=== PATIENT | male | born 1950 | race Caucasian/White ===

== ENCOUNTER → 2017-07-24 | Outpatient (CLI) | payer BC, MEDICARE ==
[~2017-07-24] MED LIST: ATR80PT PO; AZIT-18 PO; LEVO-317 PO; LEVO200T50 PO; METO25TA23 PO; WARF2TAB73 PO; WARF4TAB46 PO
[2017-07-24 10:42] LABS: INR 2.69
== END ==
LOC: LAB 09:40
PROVIDERS: ATTEND Internal Medicine Cardiovascular Disease
DX: Z51.81 Encounter for therapeutic drug level monitoring (principal); Z79.01 Long term (current) use of anticoagulants; I06.0 Rheumatic aortic stenosis; Z95.2 Presence of prosthetic heart valve
CPT/HCPCS: 36415; 85610

== ENCOUNTER → 2017-08-22 | Outpatient (CLI) | payer BC, MEDICARE ==
[2017-08-22 12:59] LABS: INR 2.87
== END ==
LOC: LAB 12:17
PROVIDERS: ATTEND Internal Medicine Cardiovascular Disease
DX: Z51.81 Encounter for therapeutic drug level monitoring (principal); Z79.01 Long term (current) use of anticoagulants; Z95.2 Presence of prosthetic heart valve; I06.0 Rheumatic aortic stenosis
CPT/HCPCS: 36415; 85610

== ENCOUNTER → 2017-10-10 | Outpatient (CLI) | payer BC, MEDICARE ==
[2017-10-10 13:48] LABS: INR 9.16
== END ==
LOC: LAB 12:44
PROVIDERS: ATTEND Internal Medicine Cardiovascular Disease
DX: Z51.81 Encounter for therapeutic drug level monitoring (principal); Z79.01 Long term (current) use of anticoagulants; Z95.2 Presence of prosthetic heart valve
CPT/HCPCS: 36415; 85610

== ENCOUNTER → 2017-10-11 | Outpatient (CLI) | payer BC, MEDICARE ==
[2017-10-11 14:29] LABS: INR 4.32
== END ==
LOC: LAB 14:08
PROVIDERS: ATTEND Internal Medicine Cardiovascular Disease
DX: Z51.81 Encounter for therapeutic drug level monitoring (principal); Z79.01 Long term (current) use of anticoagulants; Z95.2 Presence of prosthetic heart valve; I06.0 Rheumatic aortic stenosis
CPT/HCPCS: 36415; 85610

== ENCOUNTER → 2017-10-15 | Outpatient (CLI) | payer BC, MEDICARE ==
[2017-10-15 12:35] LABS: INR 4.03
== END ==
LOC: LAB 12:08
PROVIDERS: ATTEND Internal Medicine Cardiovascular Disease
DX: Z51.81 Encounter for therapeutic drug level monitoring (principal); Z79.01 Long term (current) use of anticoagulants; Z95.2 Presence of prosthetic heart valve; I06.0 Rheumatic aortic stenosis
CPT/HCPCS: 36415; 85610

== ENCOUNTER → 2017-10-22 | Outpatient (CLI) | payer BC, MEDICARE ==
[2017-10-22 14:03] LABS: INR 3.46
== END ==
LOC: LAB 13:40
PROVIDERS: ATTEND Internal Medicine Cardiovascular Disease
DX: Z51.81 Encounter for therapeutic drug level monitoring (principal); Z79.01 Long term (current) use of anticoagulants; Z95.2 Presence of prosthetic heart valve; I06.0 Rheumatic aortic stenosis
CPT/HCPCS: 36415; 85610

== ENCOUNTER → 2017-11-06 | Outpatient (CLI) | payer BC, MEDICARE ==
[2017-11-06 11:37] LABS: INR 2.85
== END ==
LOC: LAB 11:16
PROVIDERS: ATTEND Internal Medicine Cardiovascular Disease
DX: Z51.81 Encounter for therapeutic drug level monitoring (principal); Z79.01 Long term (current) use of anticoagulants; Z95.2 Presence of prosthetic heart valve; I06.0 Rheumatic aortic stenosis
CPT/HCPCS: 36415; 85610

== ENCOUNTER → 2017-12-11 | Outpatient (CLI) | payer BC, MEDICARE ==
[2017-12-11 11:51] LABS: INR 1.96
== END ==
LOC: LAB 10:59
PROVIDERS: ATTEND Internal Medicine Cardiovascular Disease
DX: Z51.81 Encounter for therapeutic drug level monitoring (principal); Z79.01 Long term (current) use of anticoagulants; Z95.2 Presence of prosthetic heart valve; I06.0 Rheumatic aortic stenosis
CPT/HCPCS: 36415; 85610

== ENCOUNTER → 2017-12-27 | Outpatient (CLI) | payer BC, MEDICARE ==
[2017-12-27 11:43] LABS: INR 1.75
== END ==
LOC: LAB 11:24
PROVIDERS: ATTEND Internal Medicine Cardiovascular Disease
DX: Z51.81 Encounter for therapeutic drug level monitoring (principal); Z79.01 Long term (current) use of anticoagulants; Z95.2 Presence of prosthetic heart valve; I06.0 Rheumatic aortic stenosis
CPT/HCPCS: 36415; 85610

== ENCOUNTER → 2018-01-16 | Outpatient (CLI) | payer BC, MEDICARE ==
[2018-01-16 11:44] LABS: INR 1.43
== END ==
LOC: LAB 11:26
PROVIDERS: ATTEND Internal Medicine Cardiovascular Disease
DX: Z51.81 Encounter for therapeutic drug level monitoring (principal); Z79.01 Long term (current) use of anticoagulants; Z95.2 Presence of prosthetic heart valve; I06.0 Rheumatic aortic stenosis
CPT/HCPCS: 36415; 85610

== ENCOUNTER → 2018-01-21 | Outpatient (CLI) | payer BC, MEDICARE ==
[2018-01-21 12:13] LABS: INR 1.77
== END ==
LOC: LAB 11:53
PROVIDERS: ATTEND Internal Medicine Cardiovascular Disease
DX: Z51.81 Encounter for therapeutic drug level monitoring (principal); Z79.01 Long term (current) use of anticoagulants; I06.0 Rheumatic aortic stenosis; Z95.2 Presence of prosthetic heart valve
CPT/HCPCS: 36415; 85610

== ENCOUNTER → 2018-01-24 | Outpatient (CLI) | payer BC, MEDICARE ==
[2018-01-24 10:17] LABS: INR 2.87
== END ==
LOC: LAB 09:52
PROVIDERS: ATTEND Internal Medicine Cardiovascular Disease
DX: Z51.81 Encounter for therapeutic drug level monitoring (principal); Z79.01 Long term (current) use of anticoagulants; Z95.2 Presence of prosthetic heart valve; I06.0 Rheumatic aortic stenosis
CPT/HCPCS: 85610

== ENCOUNTER → 2018-01-24 | Outpatient (CLI) | payer BC, MEDICARE ==
[2018-01-24 10:09] LABS: PLATELET COUNT, AUTOMATED 186 K/uL (150-450)
== END ==
LOC: LAB 09:48
PROVIDERS: ATTEND Internal Medicine
DX: E78.5 Hyperlipidemia, unspecified (principal); I10 Essential (primary) hypertension; E03.9 Hypothyroidism, unspecified; Z95.2 Presence of prosthetic heart valve; Z95.4 Presence of other heart-valve replacement
CPT/HCPCS: 36415; 81001; 82040; 82247; 82310; 82374; 82435; 82465; 82565; 82947; 83718; 84075; 84132; 84153; 84155; 84295; 84439; 84443; 84450; 84460; 84478; 84520; 85025

== ENCOUNTER → 2018-01-30 | Outpatient (CLI) | payer BC, MEDICARE ==
[2018-01-30 13:05] LABS: INR 4.05
== END ==
LOC: LAB 12:24
PROVIDERS: ATTEND Internal Medicine Cardiovascular Disease
DX: Z51.81 Encounter for therapeutic drug level monitoring (principal); Z79.01 Long term (current) use of anticoagulants; Z95.2 Presence of prosthetic heart valve; I06.0 Rheumatic aortic stenosis
CPT/HCPCS: 36415; 85610

== ENCOUNTER → 2018-02-06 | Outpatient (CLI) | payer BC, MEDICARE ==
[2018-02-06 13:51] LABS: INR 3.74
== END ==
LOC: LAB 13:28
PROVIDERS: ATTEND Internal Medicine Cardiovascular Disease
DX: Z51.81 Encounter for therapeutic drug level monitoring (principal); Z79.01 Long term (current) use of anticoagulants; Z95.2 Presence of prosthetic heart valve; I06.0 Rheumatic aortic stenosis
CPT/HCPCS: 36415; 85610

== ENCOUNTER → 2018-02-25 | Outpatient (CLI) | payer BC, MEDICARE ==
[2018-02-25 09:39] LABS: INR 3.77
== END ==
LOC: LAB 09:19
PROVIDERS: ATTEND Internal Medicine Cardiovascular Disease
DX: Z51.81 Encounter for therapeutic drug level monitoring (principal); Z79.01 Long term (current) use of anticoagulants; Z95.2 Presence of prosthetic heart valve; I06.0 Rheumatic aortic stenosis
CPT/HCPCS: 36415; 85610

== ENCOUNTER → 2018-03-14 | Outpatient (CLI) | payer BC, MEDICARE ==
[2018-03-14 11:46] LABS: INR 3.66
== END ==
LOC: LAB 11:20
PROVIDERS: ATTEND Internal Medicine Cardiovascular Disease
DX: I06.0 Rheumatic aortic stenosis (principal); Z95.2 Presence of prosthetic heart valve; Z51.81 Encounter for therapeutic drug level monitoring; Z79.01 Long term (current) use of anticoagulants
CPT/HCPCS: 36415; 85610

== ENCOUNTER → 2018-04-01 | Outpatient (CLI) | payer BC, MEDICARE ==
[2018-04-01 10:48] LABS: INR 2.85
== END ==
LOC: LAB 10:16
PROVIDERS: ATTEND Internal Medicine Cardiovascular Disease
DX: Z51.81 Encounter for therapeutic drug level monitoring (principal); I06.0 Rheumatic aortic stenosis; Z95.2 Presence of prosthetic heart valve; Z79.01 Long term (current) use of anticoagulants
CPT/HCPCS: 36415; 85610

== ENCOUNTER → 2018-05-08 | Outpatient (CLI) | payer BC, MEDICARE ==
[~2018-05-08] MED LIST changes: +EZET10TA41 PO; +LEVO175T42 PO
[2018-05-08 13:30] LABS: INR 2.79
== END ==
LOC: LAB 13:10
PROVIDERS: ATTEND Internal Medicine Cardiovascular Disease
DX: Z51.81 Encounter for therapeutic drug level monitoring (principal); I06.0 Rheumatic aortic stenosis; Z95.2 Presence of prosthetic heart valve; Z79.01 Long term (current) use of anticoagulants
CPT/HCPCS: 36415; 85610

== ENCOUNTER → 2018-05-30 | Outpatient (CLI) | payer BC, MEDICARE ==
[2018-05-30 11:30] LABS: INR 2.53
== END ==
LOC: LAB 11:10
PROVIDERS: ATTEND Internal Medicine Cardiovascular Disease
DX: Z51.81 Encounter for therapeutic drug level monitoring (principal); Z79.01 Long term (current) use of anticoagulants; Z95.2 Presence of prosthetic heart valve; I06.0 Rheumatic aortic stenosis
CPT/HCPCS: 36415; 85610

== ENCOUNTER → 2018-06-20 | Outpatient (CLI) | payer BC, MEDICARE ==
[2018-06-20 10:55] LABS: INR 3.52
== END ==
LOC: LAB 10:34
PROVIDERS: ATTEND Internal Medicine Cardiovascular Disease
DX: Z51.81 Encounter for therapeutic drug level monitoring (principal); I06.0 Rheumatic aortic stenosis; I08.0 Rheumatic disorders of both mitral and aortic valves; Z79.01 Long term (current) use of anticoagulants
CPT/HCPCS: 36415; 85610

== ENCOUNTER → 2018-07-11 | Outpatient (CLI) | payer BC, MEDICARE ==
[2018-07-11 10:27] LABS: INR 2.6
== END ==
LOC: LAB 10:03
PROVIDERS: ATTEND Internal Medicine Cardiovascular Disease
DX: Z51.81 Encounter for therapeutic drug level monitoring (principal); I06.0 Rheumatic aortic stenosis; Z95.2 Presence of prosthetic heart valve; Z79.01 Long term (current) use of anticoagulants
CPT/HCPCS: 36415; 85610

== ENCOUNTER → 2018-08-04 | Outpatient (CLI) | payer BC, MEDICARE ==
[2018-08-04 10:01] LABS: INR 2.61
== END ==
LOC: LAB 09:39
PROVIDERS: ATTEND Internal Medicine Cardiovascular Disease
DX: Z51.81 Encounter for therapeutic drug level monitoring (principal); Z79.01 Long term (current) use of anticoagulants; I06.0 Rheumatic aortic stenosis; Z95.2 Presence of prosthetic heart valve
CPT/HCPCS: 36415; 85610

== ENCOUNTER → 2018-09-03 | Outpatient (CLI) | payer BC, MEDICARE ==
[2018-09-03 09:21] LABS: INR 5.54
== END ==
LOC: LAB 08:45
PROVIDERS: ATTEND Internal Medicine Cardiovascular Disease
DX: Z51.81 Encounter for therapeutic drug level monitoring (principal); Z95.2 Presence of prosthetic heart valve; I06.0 Rheumatic aortic stenosis; Z79.01 Long term (current) use of anticoagulants
CPT/HCPCS: 36415; 85610

== ENCOUNTER → 2018-09-05 | Outpatient (CLI) | payer BC, MEDICARE ==
[2018-09-05 15:29] LABS: INR 3.1
== END ==
LOC: LAB 14:03
PROVIDERS: ATTEND Internal Medicine Cardiovascular Disease
DX: Z51.81 Encounter for therapeutic drug level monitoring (principal); I06.0 Rheumatic aortic stenosis; Z95.2 Presence of prosthetic heart valve; Z79.01 Long term (current) use of anticoagulants
CPT/HCPCS: 36415; 85610

== ENCOUNTER → 2018-09-15 | Outpatient (CLI) | payer BC, MEDICARE ==
[2018-09-15 13:59] LABS: INR 3.25
== END ==
LOC: LAB 13:27
PROVIDERS: ATTEND Internal Medicine Cardiovascular Disease
DX: Z51.81 Encounter for therapeutic drug level monitoring (principal); Z79.01 Long term (current) use of anticoagulants; Z95.2 Presence of prosthetic heart valve; I06.0 Rheumatic aortic stenosis
CPT/HCPCS: 36415; 85610

== ENCOUNTER → 2018-10-01 | Outpatient (CLI) | payer BC, MEDICARE ==
[~2018-10-01] MED LIST changes: +FLUT16SP19 NS; +LEVO150T78 PO
[2018-10-01 11:12] LABS: INR 2.74
== END ==
LOC: LAB 10:42
PROVIDERS: ATTEND Internal Medicine Cardiovascular Disease
DX: Z51.81 Encounter for therapeutic drug level monitoring (principal); Z79.01 Long term (current) use of anticoagulants; Z95.2 Presence of prosthetic heart valve; I06.0 Rheumatic aortic stenosis
CPT/HCPCS: 36415; 85610

== ENCOUNTER → 2018-10-21 | Outpatient (CLI) | payer BC, MEDICARE ==
[2018-10-21 10:03] LABS: INR 4.13
== END ==
LOC: LAB 09:36
PROVIDERS: ATTEND Internal Medicine Cardiovascular Disease
DX: Z51.81 Encounter for therapeutic drug level monitoring (principal); I06.0 Rheumatic aortic stenosis; Z95.2 Presence of prosthetic heart valve; Z79.01 Long term (current) use of anticoagulants
CPT/HCPCS: 36415; 85610

== ENCOUNTER → 2018-11-11 | Outpatient (CLI) | payer BC, MEDICARE ==
[2018-11-11 09:50] LABS: INR 4.44
== END ==
LOC: LAB 09:29
PROVIDERS: ATTEND Internal Medicine Cardiovascular Disease
DX: I06.0 Rheumatic aortic stenosis (principal); Z95.2 Presence of prosthetic heart valve; Z51.81 Encounter for therapeutic drug level monitoring; Z79.01 Long term (current) use of anticoagulants
CPT/HCPCS: 36415; 85610

== ENCOUNTER → 2018-11-28 | Outpatient (CLI) | payer BC, MEDICARE ==
[2018-11-28 13:06] LABS: INR 2.32
== END ==
LOC: LAB 12:32
PROVIDERS: ATTEND Internal Medicine Cardiovascular Disease
DX: I06.0 Rheumatic aortic stenosis (principal); Z95.2 Presence of prosthetic heart valve; Z51.81 Encounter for therapeutic drug level monitoring; Z79.01 Long term (current) use of anticoagulants
CPT/HCPCS: 36415; 85610

== ENCOUNTER → 2018-12-12 | Outpatient (CLI) | payer BC, MEDICARE ==
[2018-12-12 11:53] LABS: INR 2.88
== END ==
LOC: LAB 11:32
PROVIDERS: ATTEND Internal Medicine Cardiovascular Disease
DX: Z51.81 Encounter for therapeutic drug level monitoring (principal); Z79.01 Long term (current) use of anticoagulants; Z95.2 Presence of prosthetic heart valve; I06.0 Rheumatic aortic stenosis
CPT/HCPCS: 36415; 85610

== ENCOUNTER → 2019-01-09 | Outpatient (CLI) | payer BC, MEDICARE ==
[2019-01-09 11:27] LABS: INR 2.89
== END ==
LOC: LAB 10:40
PROVIDERS: ATTEND Internal Medicine Cardiovascular Disease
DX: I06.0 Rheumatic aortic stenosis (principal); Z95.2 Presence of prosthetic heart valve; Z79.01 Long term (current) use of anticoagulants; Z51.81 Encounter for therapeutic drug level monitoring
CPT/HCPCS: 36415; 85610